=== PATIENT | male | born 1990 | race Caucasian/White ===

== ENCOUNTER 2022-01-02 06:19 | Emergency (ER) | payer OTHER, BC ==
[2022-01-02] MEDS ORDERED: ceFAZolin 1 GM in Sodium Chloride 0.9% 100 ML IV ONE (06:23)
[2022-01-02] MEDS ORDERED: Sodium Chloride 0.9% 10 ML Syringe FLUSH PRN (06:23)
[2022-01-02] MEDS ORDERED: Bupivacaine 0.5% 10 ML SDV INJECT ONE (06:52)
[2022-01-02] MEDS ORDERED: Lidocaine 1% 5 ML VIAL INJECT ONE (06:52)
[2022-01-02 07:06] LABS: ANION GAP 10.3 meq/L (7-15)
== END 2022-01-02 09:04 | disposition home or self-care (01) ==
LOC: SUPCPDRO 06:19 → LL.ED 06:19
DX: S68.623A Partial traumatic transphalangeal amputation of left middle finger, initial encounter (principal); W23.0XXA Caught, crushed, jammed, or pinched between moving objects, initial encounter
CPT/HCPCS: 12001; 36415; 73130-LT; 80053; 85025; 96365; 99283-25; J0690; J3490